=== PATIENT | female | born 1960 | race Caucasian/White ===

== ENCOUNTER → 2018-08-29 | Outpatient (CLI) | payer BC ==
[~2018-08-29] MED LIST: ANAPROX DS550 MG PO
--- NOTE | ~2018-08-29 | PF ---
[place], [place] PULMONARY FUNCTION TEST [id number] UNIT #: [id number] ROOM: DOCTOR: MIKEL LAMBERT MD,RAYMOND BIRTHDATE: [birth year] DOS: 08/29/2018 The test was ordered by Caridad Forrest. HISTORY: The patient is a 58-year-old patient is a female, height of 68 inches, weight 168 pounds, BMI 25.5. The testing was done for the assessment of symptoms of a chronic cough and bronchitis, tobacco use, reported low-grade at 0.2 packs of cigarettes per day for 5 years. Tobacco cessation reported 36 years ago. SPIROMETRY: FVC 3.14 liters, 86% predicted value, FEV1 2.568-89% predicted value. Ratio of FEV1/FVC 86%. Flow volume, mild obstructive airway pattern. The lung volumes, thoracic gas volume 90%, residual volume 92%, total lung capacity 92%. The patient resistance and passive conductance normal. The patient's lung diffusion normal. FINAL IMPRESSION: Normal pulmonary function tests were noted. RAYMOND MORIN MD CM:PFREPORT:PULMONARY FUNCTION TEST [id number] RAYMOND LAMBERT MD
== END | disposition home or self-care (01) ==
LOC: CP 10:44
DX: Z23 Encounter for immunization (principal); J42 Unspecified chronic bronchitis